=== PATIENT | female | born 1980 | race African-American/Black ===

== ENCOUNTER → 2018-07-28 16:56 | Emergency (ER) | payer BC ==
[~2018-07-28 16:56] MED LIST: traZODone TAB* 50 MG TAB PO ONE
[2018-07-28 18:24] LABS: ABS Basophils 0 10^3/ul (0-0.2); ABS Eosinophils 0.1 10^3/ul (0-0.6); ABS Lymphocytes 1.4 10^3/ul (1.0-4.8); ABS Monocytes 0.4 10^3/ul (0-0.8); ABS Nucleated RBC 0 10^3/ul; Eosinophil % 0.9 %; Hematocrit 31 % (35-47); Hemoglobin 10.2 g/dl (12.0-16.0); Lymphocyte % 23.9 %; Mean Corpuscular HGB Conc 34 g/dl (31-36); Mean Corpuscular Hemoglobin 25 pg (27-31); Mean Corpuscular Volume 75 fL (80-97); Mean Platelet Volume 7.7 fL (7.4-10.4); Nucleated Red Blood Cells % 0; Platelet Count 273 10^3/ul (150-450); Red Blood Count 4.06 10^6/ul (4.00-5.40); Red Cell Distribution Width 18 % (10.5-15); White Blood Count 5.8 10^3/ul (3.5-10.8)
[2018-07-28 18:47] LABS: EGFR Non-African American 75.9 (>60)
--- NOTE | 2018-07-28 18:52 | ED ---
Psychiatric Complaint - HPI Summary HPI Summary: Patient is a 38 y/o F presenting to ED with SI and, per triage, "anxiety" since 1529 today. She is here voluntarily, wants to receive MHE. Patient states, "I feel like the weight of the world is on my shoulders." In room, she denies being on any medications but patient's boss who is present in the room states that patient is on hydroxyzine. Patient denies previous attempts of self-harm. Patient endorses SI but denies plan. However, on triage, it is reported that patient states that she was planning to jump off of a bridge. Chest pain, SOB is not reported. On triage, pain is denied, nothing is noted to aggravate/ alleviate Sx. Home medications and allergies are reviewed. - History Of Current Complaint Chief Complaint: EDMentalHealth Time Seen by Provider: 07/28/18 17:16 Hx Obtained From: Patient Onset/Duration: Lasting Hours - 1530 today, Still Present Timing: Hours - 1530 today onset Severity Currently: None - pain denied Character: Depressed - SI exprssed, Anxious Aggravating Factor(s): Nothing Alleviating Factor(s): Nothing Has Suicidal: Reports: Thoughts, With A Plan - denies plan in room but plan reported on triage. Denies: Has Prior Attempt(s) - Allergies/Home Medications Allergies/Adverse Reactions: Allergies Allergy/AdvReac Type Severity Reaction Status Date / Time MS Latex [Latex] Allergy Intermediate Rash Verified 11/24/16 10:20 MS Penicillins [Penicillins] Allergy Rash Verified 11/24/16 10:20 PMH/Surg Hx/FS Hx/Imm Hx Endocrine/Hematology History: Reports: Hx Anemia - PT IS CURRENTLY ANEMIC Denies: Hx Anticoagulant Therapy, Hx Diabetes, Hx Sickle Cell Disease, Hx Thyroid Disease Cardiovascular History: Denies: Hx Hypertension, Hx Pacemaker/ICD, Other Cardiovascular Problems/ Disorders Respiratory History: Reports: Hx Asthma Denies: Hx Chronic Obstructive Pulmonary Disease (COPD) GI History: Reports: Hx Gastroesophageal Reflux Disease Denies: Hx Ulcer History: Denies: Hx Renal Disease, Other Problems/Disorders Musculoskeletal History: Denies: Other Musculoskeletal History Sensory History: Denies: Hx Contacts or Glasses, Hx Hearing Aid Opthamlomology History: Denies: Hx Contacts or Glasses Neurological History: Denies: Hx Dementia, Hx Seizures, Other Neuro Impairments/Disorders Psychiatric History: Reports: Hx Anxiety - WELL CONTROLLED WITH MEDICATION, Hx Depression - WELL CONTROLLED WITH MEDICATION Denies: Hx Panic Disorder, Hx Substance Abuse - Surgical History Surgery Procedure, Year, and Place: 2012, [place] [facility] [place]PA[place] - 2010, [facility]. [place] LYMPH GLAND REMOVED - Rt AXILLA Hx Anesthesia Reactions: Yes - VOMITTING - Immunization History Date of Tetanus Vaccine: 2YEARS AGO Infectious Disease History: No Infectious Disease History: Denies: Hx Hepatitis, Hx Human Immunodeficiency Virus (HIV), History Other Infectious Disease, Traveled Outside the [place] in Last 30 Days - Family History Known Family History: Negative: Blood Disorder - Social History Alcohol Use: Occasionally Substance Use Type: Reports: None Smoking Status (MU): Never Smoked Tobacco Review of Systems Negative: Chest Pain Negative: Shortness Of Breath Positive: Anxious, Other - SI expressed All Other Systems Reviewed And Are Negative: Yes Physical Exam - Summary Physical Exam Summary: Appearance: The patient is well-nourished in no acute distress and in no acute pain. Skin: The skin is warm and dry and skin color reflects adequate perfusion. HEENT: The head is normocephalic and atraumatic. The pupils are equal and reactive. The conjunctivae are clear and without drainage. Nares are patent and without drainage. Mouth reveals moist mucous membranes and the throat is without erythema and exudate. The external ears are intact. The ear canals are patent and without drainage. The tympanic membranes are intact. Neck: The neck is supple with full range of motion and non-tender. There are no carotid bruits. There is no neck vein distension. Respiratory: Chest is non-tender. Lungs are clear to auscultation and breath sounds are symmetrical and equal. and Cardiovascular: Heart is regular rate and rhythm. There is no murmur or rub auscultated. There is no peripheral edema and pulses are symmetrical and equal. Abdomen: The abdomen is soft and non-tender. There are normal bowel sounds heard in all four quadrants and there is no organomegaly palpated. Musculoskeletal: There is no back tenderness noted. Extremities are non-tender with full range of motion. There is good capillary refill. There is no peripheral edema or calf tenderness elicited. Neurological: Patient is alert and oriented to person, place and time. The patient has symmetrical motor strength in all four extremities. Cranial nerves are grossly intact. Deep tendon reflexes are symmetrical and equal in all four extremities. Psychiatric: The patient expresses SI and anxiety. Triage Information Reviewed: Yes Vital Signs On Initial Exam: Initial Vitals Pulse Resp BP Pulse Ox 98 18 161/103 99 07/28/18 17:09 18 17:09 07/28/18 17:09 07/28/18 17:09 Vital Signs Reviewed: Yes Diagnostics - Vital Signs Vital Signs Pulse Resp BP Pulse Ox 07/28/18 17:09 98 18 161/103 99 - Laboratory Lab Results: Lab Results 07/28/18 Range/Units 18:14 WBC 5.8 (3.5-10.8) 10^3/ul RBC 4.06 (4.00-5.40) 10^6/ul Hgb 10.2 L (12.0-16.0) g/dl Hct 31 L (35-47) % MCV 75 L (80-97) fL MCH 25 L (27-31) pg MCHC 34 (31-36) g/dl RDW 18 H (10.5-15) % Plt Count 273 (150-450) 10^3/ul MPV 7.7 (7.4-10.4) fL Neut % (Auto) 68.0 % Lymph % (Auto) 23.9 % Esmeralda % (Auto) 6.6 % Eos % (Auto) 0.9 % Baso % (Auto) 0.6 % Absolute Neuts (auto) 4.0 (1.5-7.7) 10^3/ul Absolute Lymphs (auto) 1.4 (1.0-4.8) 10^3/ul Absolute Monos (auto) 0.4 (0-0.8) 10^3/ul Absolute Eos (auto) 0.1 (0-0.6) 10^3/ul Absolute Basos (auto) 0 (0-0.2) 10^3/ul Absolute Nucleated RBC 0 10^3/ul Nucleated RBC % 0 Result Diagrams: 07/28/18 18:14 07/28/18 18:14 Lab Statement: Any lab studies that have been ordered have been reviewed, and results considered in the medical decision making process. Re-Evaluation - Re-Evaluation First Eval Re-Evaluation Time: 19:00 Comment: Patient was medically cleared for MHE. Course/Dx - Course Course Of Treatment: Ms. Rosales was medically cleared here in the emergency department and evaluated by the mental health staff. Dr. Goodwin was consult and felt that the patient was stable for discharge and requested a dose of trazodone to help her sleep tonight. - Differential Dx/Clinical Impression Provider Diagnosis: Anxiety disorder - Physician Notifications Discussed Care Of Patient With: Vicente Goodwin Time Discussed With Above Provider: 20:48 Instructed by Provider To: Other - Patient's case was reviewed by Dr. Goodwin, Dr. Goodwin states that patient can be discharged to home. Dr. Floyd is agreeable with this. Discharge - Sign-Out/Discharge Documenting (check all that apply): Patient Departure - discharge - Discharge Plan Condition: Stable Disposition: HOME Patient Education Materials: Anxiety (ED) Referrals: Oneyda Cain MD [Primary Care Provider] - Additional Instructions: Per completion of a mental health evaluation, you are cleared for release and do not require inpatient psychiatric hospitalization at this time. Please go to nearest emergency room or call 911 if safety concerns arise or condition worsens. Important Phone Numbers: [facility] ph:[phone] Suicide Prevention and Crisis Services ph:[phone] National Suicide Prevention Lifeline ph:[phone]- QGAJ (8457) [facility] ph:[phone] Alcoholics Anonymous ph: [facility] ph:[phone] [employer] ph:[phone] Recommendations: Follow up with Primary Care Doctor as scheduled on Tuesday regarding possibility of medication. Commence therapy with a therapist. A resource is the [facility], who has private therapist listed on their website at [email or web address].aedu.org or call . - Billing Disposition and Condition Condition: STABLE Disposition: Home - Attestation Statements Document Initiated by Scribe: Yes Documenting Scribe: LASHAUN ABDI Provider For Whom Scribe is Documenting (Include Credential): MARIYA FLOYD MD Scribe Attestation: LASHAUN Davalos , scribed for MARIYA FLOYD MD on 07/28/18 at 0358. Scribe Documentation Reviewed: Yes Provider Attestation: The documentation as recorded by the scribe, LASHAUN ABID accurately reflects the service I personally performed and the decisions made by me, MARIYA FLOYD MD Status of Scribe Document: Viewed
[2018-07-28 20:28] LABS: Urine Appearance Cloudy; Urine Blood Negative (Negative); Urine Color Yellow; Urine Ketones Negative (Negative); Urine Protein Negative (Negative); Urine Specific Gravity 1.025 (1.010-1.030); Urine Urobilinogen Negative (Negative)
[2018-07-28 21:29] VITALS: BP 109/74
== END | disposition home or self-care (01) ==
LOC: ED 16:56
DX: F41.9 Anxiety disorder, unspecified (principal); R45.851 Suicidal ideations; D64.9 Anemia, unspecified; F32.9 Major depressive disorder, single episode, unspecified; Z88.0 Allergy status to penicillin; Z91.040 Latex allergy status
CPT/HCPCS: 36415; 80053; 80307; 80320; 80329; 81003; 84443; 84702; 85025; 99284; A9270-GY; G0480